=== PATIENT | female | born 1985 | race African-American/Black ===

== ENCOUNTER 2018-11-19 19:45 | Emergency (ER) | payer OTHER ==
[~2018-11-19] VITALS: Ht 162.6 cm; Wt 70.5 kg
[~2018-11-19 19:45] MED LIST: TRAM50TA4 PO
[2018-11-19 19:50] VITALS: BP 132/66
[2018-11-19] MEDS ORDERED: METH10SO PO (19:59)
[2018-11-19] MEDS ORDERED: CEPHALEXIN MONOHYDRATE 500 MG CAPSULE PO ONE (22:00)
== END 2018-11-19 21:57 | disposition home or self-care (01) ==
LOC: EMS 19:45
DX: J32.9 Chronic sinusitis, unspecified (principal); F17.210 Nicotine dependence, cigarettes, uncomplicated; Z88.5 Allergy status to narcotic agent; Z88.6 Allergy status to analgesic agent